=== PATIENT | female | born 2000 | race Caucasian/White ===

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

== ENCOUNTER 2023-03-02 21:53 | Emergency (ER) | payer OTHER, SELFPAY ==
--- NOTE | ~2023-03-02 | XR_ITS ---
EXAMINATION: LUMBAR SPINE, SACRUM AND COCCYX CLINICAL INFORMATION: Fall with acute pain COMPARISON: None available. TECHNIQUE: 3 views lumbosacral spine, 3 views sacrum and coccyx FINDINGS: Lumbar spine appears unremarkable. No evidence of fracture or bony destructive lesion . The sacrum appears intact without evidence of an acute fracture or destructive lesion. XR/XR lumbar spine 2-3V IMPRESSION: No evidence of an acute injury.
--- NOTE | ~2023-03-02 | XR_ITS ---
EXAMINATION: LUMBAR SPINE, SACRUM AND COCCYX CLINICAL INFORMATION: Fall with acute pain COMPARISON: None available. TECHNIQUE: 3 views lumbosacral spine, 3 views sacrum and coccyx FINDINGS: Lumbar spine appears unremarkable. No evidence of fracture or bony destructive lesion . The sacrum appears intact without evidence of an acute fracture or destructive lesion. XR/XR sacrum coccyx min 2V IMPRESSION: No evidence of an acute injury.
[2023-03-02 22:00] VITALS: BP 120/69; PULSE 93; RESP 18; TEMP 36.8; O2SAT 97; BMI 27.2
--- NOTE | 2023-03-03 02:48 | ED_ITS ---
HPI - Back Pain/Injury General Chief Complaint: Back Pain/Injury Stated Complaint: tailbone pain/lower back Time Seen by Provider: 03/03/23 02:48 Source: patient Mode of arrival: ambulatory Limitations: no limitations History of Present Illness HPI Narrative: Patient apparently fell 1 week ago on the steps about 5-7 steps slided down on the stairs since then complaining of pain the coccyx and left gluteal area, no other injury Related Data Previous Rx's Medication Instructions Recorded cyclobenzaprine 10 mg tablet 10 mg PO TID PRN muscle spasm #14 04/07/21 tabs cyclobenzaprine 10 mg tablet 10 mg PO TID PRN muscle spasm #14 04/07/21 tabs ibuprofen 600 mg tablet 600 mg PO Q6H PRN pain #30 tabs 04/07/21 ibuprofen 600 mg tablet 600 mg PO Q6H PRN pain #30 tabs 04/07/21 hydrocodone 5 mg-acetaminophen 325 1 tab PO Q4-6H PRN pain #5 tabs 08/07/21 mg tablet ibuprofen 600 mg tablet 600 mg PO Q6H PRN fever or pain 03/03/23 #30 tabs Allergies Allergy/AdvReac Type Severity Reaction Status Date / Time No Known Allergies Allergy Verified 03/02/23 22:04 Review of Systems 2 Review of Systems: Yes all other systems are reviewed and are negative PMFSH Past Medical History Onset Date is defined in the Problem List Problems that require an onset date and time if occurred within 24 hrs of arrival to the ED Aortic Dissection and Rupture; Neurologic impairment; Cardiopulmonary Arrest; Endotracheal Intubation; Insertion or Replacement of Mechanical Circulatory Assist Device Medical History No known health problems Social History Social History Alcohol intake: current Alcohol intake frequency: holidays/special occasions only Patient Tobacco Use Status: Never used Tobacco Substance Use Type: Marijuana Advance Directives: No Advance Directives Information Provided: No Current occupational status: employed 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 Mild tenderness in the right gluteal area no midline tenderness no ecchymosis or swelling normal gait Medications Administered Discontinued Medications Generic Name Dose Route Start Last Admin Trade Name Freq PRN Reason Stop Dose Admin Ibuprofen 600 mg 03/03/23 03:16 03/03/23 03:30 Ibuprofen 600 Mg Tablet PO 03/03/23 03:17 Not Given ONCE ONE Medical Decision Making Medical Decision Making MDM Narrative: Patient with contusion of the right gluteal area x-ray negative for lumbar/ sacral/coccygeal fracture discharge patient home on supportive Independent Interpretation I performed an independent interpretation of an: Plain X-Ray Radiology Impression Discussion of test interpretation with radiology: I have reviewed the radiologist's reading. Discharge Plan Discharge Clinical Impression: Contusion of sacral region Patient Disposition: Home, Self-Care Instructions: Contusion in Adults (ED) Additional Instructions: Take ibuprofen for pain Apply ice Your x-ray negative for fracture Prescriptions: New ibuprofen 600 mg tablet 600 mg PO Q6H PRN (Reason: fever or pain) Qty: 30 0RF No Action cyclobenzaprine 10 mg tablet 10 mg PO TID PRN (Reason: muscle spasm) Qty: 14 0RF ibuprofen 600 mg tablet 600 mg PO Q6H PRN (Reason: pain) Qty: 30 0RF cyclobenzaprine 10 mg tablet 10 mg PO TID PRN (Reason: muscle spasm) Qty: 14 0RF ibuprofen 600 mg tablet 600 mg PO Q6H PRN (Reason: pain) Qty: 30 0RF hydrocodone-acetaminophen 5-325 mg tablet 1 tab PO Q4-6H PRN (Reason: pain) Qty: 5 0RF Rx Instructions: Partial Fill upon patient request. Stand Alone Forms: Work/School Release Interventions: ED Discharge Assessment Last Done: 03/03/23 04:43 Discharge Date/Time: 03/03/23 03:32
--- NOTE | 2023-03-03 03:05 | PC.NURSE ---
Assumed care of pt. Report received from YANI Duarte. Per MD Randolph, plan for D/C, pending orders.
== END 2023-03-03 03:32 | disposition home or self-care (01) ==
PROVIDERS: Emergency Provider Internal Medicine
DX: S30.0XXA Contusion of lower back and pelvis, initial encounter (principal); W10.8XXA Fall (on) (from) other stairs and steps, initial encounter; Y93.89 Activity, other specified; Y92.008 Other place in unspecified non-institutional (private) residence as the place of occurrence of the external cause; Y99.9 Unspecified external cause status
CPT/HCPCS: 72100; 72220; 99283

== ENCOUNTER 2023-09-25 19:18 | Emergency (ER) | payer OTHER, SELFPAY ==
[2023-09-25 19:29] VITALS: BP 92/61; PULSE 82; RESP 16; TEMP 36.8; O2SAT 99; BMI 27.1
--- NOTE | 2023-09-25 19:34 | ED.GENADULT ---
HPI - General Adult General Chief complaint: General Medical Stated complaint: headache right ear pain Time Seen by Provider: 09/25/23 22:55 History of Present Illness ED Provider: Manuel KLEIN narrative: The patient is a 23-year-old female who says that for the last month she has had discomfort in her right ear. She says that she often feels that she has to ?pop? the right ear for relief. She has also had headaches over the last several days. She has had no fever, sweats, chills. No sore throat. No cough or sputum. No ear discharge. No trauma. Related Data Previous Rx's ?Medication ?Instructions ?Recorded cyclobenzaprine 10 mg tablet 10 mg PO TID PRN muscle spasm #14 04/07/21 tabs cyclobenzaprine 10 mg tablet 10 mg PO TID PRN muscle spasm #14 04/07/21 tabs ibuprofen 600 mg tablet 600 mg PO Q6H PRN pain #30 tabs 04/07/21 ibuprofen 600 mg tablet 600 mg PO Q6H PRN pain #30 tabs 04/07/21 hydrocodone 5 mg-acetaminophen 325 1 tab PO Q4-6H PRN pain #5 tabs 08/07/21 mg tablet ibuprofen 600 mg tablet 600 mg PO Q6H PRN fever or pain 03/03/23 #30 tabs ibuprofen 600 mg tablet 600 mg PO Q6H PRN pain #14 tabs 09/25/23 Allergies Allergy/AdvReac Type Severity Reaction Status Date / Time No Known Allergies Allergy Verified 09/25/23 19:30 [facility] Past Medical History Medical History No known health problems Social History Social History Alcohol intake: current Alcohol intake frequency: holidays/special occasions only Patient Tobacco Use Status: Never used Tobacco Substance Use Type: Marijuana Advance Directives: No Advance Directives Information Provided: No Do you have a plan to hurt others: No Plan Current occupational status: employed 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 She looks entirely well. She does not appear ill or uncomfortable in any way. HENMT Other: The appearance of the face is unremarkable. The face is symmetrical and appears normal. Ear exams are normal bilaterally. External ears are normal, ear canals are normal and clear, tympanic membranes are normal bilaterally. There is no significant TMJ tenderness. No obvious dental source of pain. No trismus. Eyes Other: Pupils are round and equal, conjunctivae are clear, extraocular movements intact. Neck Other: No cervical adenopathy. The neck is supple. Resp Effort & Inspection: normal respiratory effort Auscultation: clear to auscultation bilaterally Cardio Rate: regular rate Rhythm: regular rhythm Heart sounds: S1 normal heart sound present and S2 normal heart sound present Skin Other: Skin is dry and unremarkable Neuro Other: The patient is awake and alert with a normal mental status. Cranial nerves 2-12 are grossly intact. She moves all 4 extremities normally and seems grossly neurologically intact. Her demeanor is nontoxic. Extrem Other: No peripheral edema Course Course Course Narrative: RME performed by Paula Sullivan PA-C. Patient is a 23 year old assigned female at presenting to the emergency department with right ear pain and a headache. Patient has had right ear pain for 1 month and a headache for the last 3 days. Detailed physical exam and review of systems are deferred to the speech and language clinician. Swabs ordered. Patient placed back in the waiting room pending room availability and results. Medical Decision Making Medical Decision Making [facility] Narrative: The patient is a 23-year-old female who presents for evaluation of right ear symptoms that have bothered her for a month as well as intermittent headaches. She looks entirely well. She has no abnormal findings on physical exam. Specifically her ears look entirely unremarkable and without infection. The patient's description of her symptoms is somewhat suggestive of possible Eustachian tube dysfunction. I do not have a better alternative diagnosis. I do not feel there is evidence of TMJ syndrome. Patient seems appropriate for discharge. She had had a regular doctor at [facility] but she is under the impression that she is now too old to be seen at [facility]. She has not yet gotten a regular primary care doctor since leaving the pediatric practice. I explained that perhaps she can still be seen at [facility] while she is 23. She should call the office to see if she can be seen again for a 2nd opinion. I have also given her the name and number of Dr. Daigle of ENT for a possible ENT opinion. Lab Data Labs: Lab Results 09/25/23 Range/Units 19:49 Influenza Type A (PCR) NEGATIVE (Negative) Influenza Type B (PCR) NEGATIVE (Negative) RSV RNA Qual (PCR) NEGATIVE (Negative) SARS-CoV-2 RNA (RT-PCR) NEGATIVE (Negative) S. pyogenes GrpA KEVIN Negative (Negative) Discharge Plan Discharge Clinical Impression: Discomfort of right ear, Frequent headaches, Eustachian tube dysfunction Patient Disposition: Home, Self-Care Additional Instructions: The symptoms you were describing in your right ear I think are most likely consistent with a syndrome called Eustachian tube dysfunction. Eustachian tube dysfunction can be very bothersome but it is not a dangerous condition and it usually gets better on its own after several weeks. You may use ibuprofen and acetaminophen as needed for discomfort. Please work on getting a new primary care doctor. In the meantime I think it would be worth contacting [facility] to see if they could still see you for another year or so. The contact information for Dr. Daigle, an ear nose and throat doctor, has been provided. You may contact his office to see if he can see you for an additional opinion. Return to the emergency room if significantly worse. Prescriptions: New ibuprofen 600 mg tablet 600 mg PO Q6H PRN (Reason: pain) Qty: 14 0RF No Action cyclobenzaprine 10 mg tablet 10 mg PO TID PRN (Reason: muscle spasm) Qty: 14 0RF ibuprofen 600 mg tablet 600 mg PO Q6H PRN (Reason: pain) Qty: 30 0RF cyclobenzaprine 10 mg tablet 10 mg PO TID PRN (Reason: muscle spasm) Qty: 14 0RF ibuprofen 600 mg tablet 600 mg PO Q6H PRN (Reason: pain) Qty: 30 0RF hydrocodone-acetaminophen 5-325 mg tablet 1 tab PO Q4-6H PRN (Reason: pain) Qty: 5 0RF Rx Instructions: Partial Fill upon patient request. ibuprofen 600 mg tablet 600 mg PO Q6H PRN (Reason: fever or pain) Qty: 30 0RF Referrals: [facility] [Provider Group] (Right ear discomfort, headaches) Alex Daigle [Physician] - (Eustachian tube dysfunction) Interventions: ED Discharge Assessment Last Done: 09/25/23 23:30 Discharge Date/Time: 09/25/23 23:35 Print Language: Faroese
[2023-09-25 20:05] LABS: IDNOW Serial# 08D9AD1C; Strep A Nucleic Acid Negative (Negative)
[2023-09-25 20:34] LABS: Influenza A PCR NEGATIVE (Negative); Influenza B PCR NEGATIVE (Negative); Resp Syncy Virus RNA Qual PCR NEGATIVE (Negative); SARS COV2 PCR INHOUSE NEGATIVE (Negative)
[2023-09-25 23:30] VITALS: BP 104/58; PULSE 75; RESP 16; TEMP 36.7; O2SAT 99
== END 2023-09-25 23:35 | disposition home or self-care (01) ==
PROVIDERS: Physician Assistant Medical; Emergency Provider Emergency Medicine
DX: H69.91 Unspecified Eustachian tube disorder, right ear (principal); H92.01 Otalgia, right ear; R51.9 Headache, unspecified; Z03.818 Encounter for observation for suspected exposure to other biological agents ruled out
CPT/HCPCS: 0241U; 87651; 99282; 99283

== ENCOUNTER 2023-10-01 09:15 | Emergency (ER) | payer OTHER, SELFPAY ==
[2023-10-01 09:26] VITALS: BP 100/63; PULSE 78; RESP 16; TEMP 36.6; O2SAT 97; BMI 25.7
--- NOTE | 2023-10-01 09:31 | ED.HA ---
HPI - Headache General Chief Complaint: Headache Stated Complaint: headache Time Seen by Provider: 10/01/23 09:29 Source: patient Mode of arrival: ambulatory Limitations: no limitations History of Present Illness HPI Narrative: Patient is a 23-year-old female who presents emergency department for evaluation of a headache. She reports over the past week she has been experiencing an intermittent headache with varying intensity at times. She reports it is often on the right side but she also feels it to the left side of her head in the back of her head. Currently she is experiencing a 4/10 right-sided headache, pain feels more localized behind her right eye. She denies associated vision changes. She denies having difficulty seeing or feeling as though she is straining to try and see. She reports a single episode of dizziness yesterday occurring for 3 seconds and when asked to describe it she reports that she felt as though she would vomit. She occasionally gets nausea with her headaches. Over the past month she has been experiencing discomfort to her right ear and a popping sensation on occasion. She reports that she has not sought evaluation for these headaches. Over the past week she has needed to take ibuprofen 600 mg on 3 occasions. The headache typically resolves with rest. She denies URI symptoms fevers chills neck pain or neck stiffness. She denies any injury or trauma. Denies any chest pain or shortness of breath. Related Data Previous Rx's ?Medication ?Instructions ?Recorded cyclobenzaprine 10 mg tablet 10 mg PO TID PRN muscle spasm #14 04/07/21 tabs cyclobenzaprine 10 mg tablet 10 mg PO TID PRN muscle spasm #14 04/07/21 tabs ibuprofen 600 mg tablet 600 mg PO Q6H PRN pain #30 tabs 04/07/21 ibuprofen 600 mg tablet 600 mg PO Q6H PRN pain #30 tabs 04/07/21 hydrocodone 5 mg-acetaminophen 325 1 tab PO Q4-6H PRN pain #5 tabs 08/07/21 mg tablet ibuprofen 600 mg tablet 600 mg PO Q6H PRN fever or pain 03/03/23 #30 tabs ibuprofen 600 mg tablet 600 mg PO Q6H PRN pain #14 tabs 09/25/23 Allergies Allergy/AdvReac Type Severity Reaction Status Date / Time No Known Allergies Allergy Verified 10/01/23 09:27 Review of Systems Review of Systems: Yes all other systems are reviewed and are negative [facility] Past Medical History Attestation statement: The following information was validated with the patient. 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 No acute distress.?Normal affect. Head: Normocephalic, atraumatic Eyes: Pupils equal, round and reactive to light. EOMI. No nystagmus. No tenderness to palpation over the temporal region. ENT: External auditory canal normal tympanic membrane pearly roque and intact bilaterally. Oropharynx normal. Neck: Normal inspection.? Neck supple. No nuchal rigidity CVS: Heart sounds normal. Normal heart rate and rhythm.? Pulses normal.?? Respiratory: No respiratory distress.? Lung sounds clear to auscultation bilaterally?? Abdomen: Soft and non-tender. Normoactive bowel sounds. ?? Skin: Skin warm and dry.? Normal skin color.? ?? Extremities: No lower extremity edema.? Neuro: Moves all extremities spontaneously. Sensation intact bilaterally. CN II-XII intact. No focal neuro deficits. Ambulatory with steady gait. Medications Administered Discontinued Medications Generic Name Dose Route Start Last Admin Trade Name Freq PRN Reason Stop Dose Admin Ibuprofen 600 mg 10/01/23 09:50 10/01/23 10:48 Ibuprofen 600 Mg Tablet PO 10/01/23 09:51 600 mg ONCE ONE Administration Medical Decision Making Medical Decision Making MDM Narrative: Patient is a 23-year-old female who presents to the emergency department for evaluation of intermittent headaches as per HPI. Overall she appears well, nontoxic, afebrile. She is in no distress. She has no red flag symptoms, no focal neurological deficits on evaluation. Her history sounds very typical of a classic migraine headache, it is resolved when going into a quiet room and resting or with seldom use of ibuprofen. I have a low suspicion for acute intracranial pathology as etiology. Given she has not had recent evaluation by a primary care doctor and is in the works of establishing care with a new provider, will obtain basic labs to exclude potential causes such as anemia, electrolyte derangement, abnormal thyroid function, . Patient agreeable to receiving ibuprofen for headache at this time. Differential diagnosis with presentation includes SDH, SAH, ICH, MUCK HAULER mass, meningitis, encephalitis, CVA, GCA, migraine, headache. History without concerning exposures, not exacerbated or worsened by exertion, no red flag symptoms, vision changes, under the age of 50, no new no compromising conditions, no focal neurological abnormalities. Of note she was evaluated in this emergency department on 09/25/2023 for evaluation of her right ear discomfort, fullness and popping sensation over the past month. There was concern for possible eustachian tube dysfunction for which she was referred to ENT, she call them yet to make an appointment. Headaches may be a symptom of ETD as well which I did discuss with patient. Differential Diagnosis Differential Diagnoses: The differential diagnosis associated with the presentation includes (SDH, SAH, ICH, MUCK HAULER mass, meningitis, encephalitis, CVA, GCA, migraine, headache) Admission/Observation Consideration of admission/observation: Escalation of care including admission/observation considered Lab Data MDM Lab Attestation statement: I reviewed the patient's lab results. CBC is without leukocytosis, anemia, or thrombocytopenia. No electrolyte derangement. No HELEN. HCG is negative. TSH within normal range. Viral panel negative. 10/01/23 10:02 10/01/23 10:02 Labs: Lab Results 10/01/23 Range/Units 10:02 WBC 5.6 (4.8-10.8) X10*3/uL RBC 4.17 L (4.20-5.50) X10*6/uL Hgb 12.9 (12.0-16.0) g/dl Hct 38.9 (37.0-47.0) % MCV 93.3 (80.0-98.0) fL MCH 30.9 (27.0-33.0) pg MCHC 33.2 (31.0-35.0) g/dl RDW 11.9 (11.0-16.0) % Plt Count 253 (160-400) X10*3/uL MPV 9.9 (9.4-12.3) fL Immature Gran % (Auto) 0.4 (0.0-0.4) % Neut % (Auto) 63.5 (45-73) % Lymph % (Auto) 27.3 (20-40) % Milam % (Auto) 7.5 (2-11) % Eos % (Auto) 0.4 (0-4) % Baso % (Auto) 0.9 (0-2) % Lymph # (Auto) 1.5 (1.2-4.9) X10*3/uL Milam # (Auto) 0.4 (0.1-1.2) X10*3/uL Eos # (Auto) 0.0 (0.0-0.4) X10*3/uL Baso # (Auto) 0.1 (0.0-0.2) X10*3/uL Abs Immat Gran (auto) 0.02 (0.00-0.03) X10*3/uL Absolute Neuts (auto) 3.5 (2.0-8.3) x10*3/uL Absolute Nucleated RBC 0.000 (0.0-0.012) X10*3/uL Nucleated RBC % (auto) 0.0 (0.0-0.2) /100WBC Sodium 140 (135-145) mmol/L Potassium 4.5 (3.3-5.1) mmol/L Chloride 107 (96-108) mmol/L Carbon Dioxide 26 (22-29) mmol/L Anion Gap 12 (12-20) BUN 10 (9-16) mg/dL Creatinine 0.67 (0.5-1.4) mg/dL Estim Creat Clear Calc 98.2 Estimated GFR > 60 Random Glucose 89 (60-115) mg/dL Calcium 9.3 (8.4-10.2) mg/dL TSH 0.65 (0.32-4.0) uIU/mL Urine Test NEGATIVE (NEGATIVE) Influenza Type A (PCR) NEGATIVE (Negative) Influenza Type B (PCR) NEGATIVE (Negative) RSV RNA Qual (PCR) NEGATIVE (Negative) SARS-CoV-2 RNA (RT-PCR) NEGATIVE (Negative) Independent Historian Clinical information obtained from an independent historian. History obtained from or confirmed by: Spouse External Record Review External record reviewed: Outpatient record Discharge Plan Discharge Clinical Impression: Headache Patient Disposition: Home, Self-Care Instructions: Migraine Headache (ED), Acute Headache (ED) Additional Instructions: As discussed, your symptoms of your headaches sound very consistent with a migraine style headache. Your blood work today was all very reassuring. You can take ibuprofen 200 mg, 3 tablets (600mg) every 6-8 hours as needed for pain, in addition to Tylenol 500 mg, 2 tablets (1,000mg) every 4-6 hours as needed for pain, but not to exceed 3 doses daily (3,000mg).? You were recently evaluated in the emergency department as well with concern for discomfort to your right ear and popping, you were thought to have possible eustachian tube dysfunction. It is still recommended that you follow-up with an ENT specialist, Dr. Daigle who is number you were given previously as eustachian tube dysfunction may also result in headaches. Keep a log of your headaches in written or typed form including What time they occur, How long they last for, Medicine or intervention such as rest and sleeping that help the headache to go away. It is also helpful to keep though of certain foods that you ate earlier that day before the headache onset. This can be evaluated with your primary care doctor to try and determine potential precipitating factors of your headache. Additionally as discussed, you may contact your digital service engineer office to determine whether they will still see you as a patient during this year as you are still 23 years old while you are working to find a new adult primary care doctor. Please contact your insurance company for assistance with local providers in network or consider calling local offices to determine whether they accept your insurance and are taking new patients. I have also attached contact information for some of the primary care offices associated with our hospital in addition to [facility] the you may attempt calling. Prescriptions: No Action cyclobenzaprine 10 mg tablet 10 mg PO TID PRN (Reason: muscle spasm) Qty: 14 0RF ibuprofen 600 mg tablet 600 mg PO Q6H PRN (Reason: pain) Qty: 30 0RF cyclobenzaprine 10 mg tablet 10 mg PO TID PRN (Reason: muscle spasm) Qty: 14 0RF ibuprofen 600 mg tablet 600 mg PO Q6H PRN (Reason: pain) Qty: 30 0RF hydrocodone-acetaminophen 5-325 mg tablet 1 tab PO Q4-6H PRN (Reason: pain) Qty: 5 0RF Rx Instructions: Partial Fill upon patient request. ibuprofen 600 mg tablet 600 mg PO Q6H PRN (Reason: fever or pain) Qty: 30 0RF ibuprofen 600 mg tablet 600 mg PO Q6H PRN (Reason: pain) Qty: 14 0RF Referrals: [facility] [Provider Group] [facility] [place]] [facility] [[place] Group] Alex Daigle [Physician] - Print Language: Lithuanian
[2023-10-01 10:09] LABS: MANUAL DIFF FLAG NO
[2023-10-01 10:12] LABS: Basophils Absolute Auto 0.1 X10*3/uL (0.0-0.2); Basophils Percent Auto 0.9 % (0-2); Eosinophils Percent Auto 0.4 % (0-4); Hematocrit 38.9 % (37.0-47.0); Hemoglobin 12.9 g/dl (12.0-16.0); Imm Gran Abs Auto 0.02 X10*3/uL (0.00-0.03); Imm Gran Pct Auto 0.4 % (0.0-0.4); Lymphocytes Absolute Auto 1.5 X10*3/uL (1.2-4.9); Lymphocytes Percent Auto 27.3 % (20-40); Mean Corpuscular HGB Conc 33.2 g/dl (31.0-35.0); Mean Corpuscular Hemoglobin 30.9 pg (27.0-33.0); Mean Corpuscular Volume 93.3 fL (80.0-98.0); Mean Platelet Volume 9.9 fL (9.4-12.3); Monocytes Absolute Auto 0.4 X10*3/uL (0.1-1.2); Monocytes Percent Auto 7.5 % (2-11); Neutrophils Absolute Auto 3.5 x10*3/uL (2.0-8.3); Neutrophils Percent Auto 63.5 % (45-73); Platelet Count 253 X10*3/uL (160-400); Red Blood Count 4.17 X10*6/uL (4.20-5.50); Red Cell Distribution Width 11.9 % (11.0-16.0); White Blood Count 5.6 X10*3/uL (4.8-10.8)
[2023-10-01 10:30] LABS: Anion Gap 12 (12-20); Blood Urea Nitrogen 10 mg/dL (9-16); Calcium 9.3 mg/dL (8.4-10.2); Carbon Dioxide 26 mmol/L (22-29); Chloride 107 mmol/L (96-108); Creatinine Clr Calc Pharmacy 98.2; Estimated Glomerular Filt Rate > 60; Glucose Random 89 mg/dL (60-115); Potassium 4.5 mmol/L (3.3-5.1); Sodium 140 mmol/L (135-145)
[2023-10-01 10:32] LABS: UPreg QC Valid YES; Urine Pregnancy NEGATIVE (NEGATIVE)
[2023-10-01] MEDS: Ibuprofen 600 MG TABLET PO (10:48)
[2023-10-01 10:53] LABS: Influenza A PCR NEGATIVE (Negative); Influenza B PCR NEGATIVE (Negative); Resp Syncy Virus RNA Qual PCR NEGATIVE (Negative); SARS COV2 PCR INHOUSE NEGATIVE (Negative); TSH reflex Free T4 0.65 uIU/mL (0.32-4.0)
[2023-10-01 11:29] VITALS: BP 100/63; PULSE 78; RESP 16; TEMP 36.6; O2SAT 97
== END 2023-10-01 11:30 | disposition home or self-care (01) ==
PROVIDERS: Nurse Practitioner Family; Emergency Provider Student in an Organized Health Care Education/Training Program
DX: R51.9 Headache, unspecified (principal); Z03.818 Encounter for observation for suspected exposure to other biological agents ruled out
CPT/HCPCS: 0241U; 36415; 80048; 81025; 84443; 85025; 99283

== ENCOUNTER 2024-08-07 13:48 | Outpatient (AMB) | payer OTHER, SELFPAY ==
[2024-08-07 13:50] VITALS: BP 102/76; PULSE 97; O2SAT 98; BMI 28.6
--- NOTE | 2024-08-07 13:50 | A.OFFPC_ITS ---
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: No Accompanied by: Self / Same As Patient Allergies No Known Allergies Allergy (Verified 08/07/24 13:51) Tobacco use date assessed: 08/07/24 Dental Screening Dental Screen Date: 08/07/24 Did you have a dental visit in the last 12 months?: Yes Did you have a dental problem in the last 6 months where you did not have access to dental care?: No Was dental information given to patient?: Patient has dentist HPI establish care HPI Details LMP June irregular 5 days [employer] Apri 2024 [facility] Medical History No known health problems Family History (Updated 08/07/24 @ 13:55 by MARIA DEL CARMEN Choe) Other Breast cancer Diabetes Social History Housing: Apartment Alcohol intake: current Alcohol intake frequency: holidays/special occasions only Patient Tobacco Use Status: Never used Tobacco e-Cigarette/Vaping Use: Never Used Second Hand Smoke Exposure: No Substance Use Type: Marijuana service: No Current occupational status: employed 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 1. Little interest or pleasure in doing things: several days 2. Feeling down, depressed, or hopeless: several days 3. Trouble falling or staying asleep, or sleeping too much: more than half the days 4. Feeling tired or having little energy: more than half the days 5. Poor appetite or overeating: not at all 6. Feeling bad about yourself - or that you are a failure or have let yourself or your family down: several days 7. Trouble concentrating on things, such as reading the newspaper or watching television: more than half the days 8. Moving or speaking so slowly that other people could have noticed. Or the opposite - being so fidgety or restless that you have been moving around a lot more than usual: not at all 9. Thoughts that you would be better off or of hurting yourself in some way: not at all Total score: 9 Source: Developed by Drs. Olaf Toro, Cecille Zamora, Michoacano Amaya and colleagues, with an educational geraldo from [employer]. Thrive Questionnaire Date Thrive assessed: 08/07/24 I am a: Patient What is your living situation today?: I have a steady place to live Within the past 12 months, did the food you bought not last and you didn't have the money to get more?: I choose not to answer this question Within the past 12 months, did you worry whether your food would run out before you got money to buy more?: I choose not to answer this question Do you have trouble paying for medicines?: I choose not to answer this question Do you have trouble getting transportation to medical appointments?: No Do you have trouble paying your heating and electricity bill?: I choose not to answer this question Do you have trouble taking care of your child, family member or friend?: I choose not to answer this question Do you have trouble with day-to-day activities such as bathing, preparing meals, shopping, managing finances, etc.?: No Are you currently unemployed and looking for a job?: No Are you interested in more education?: I choose not to answer this question Please select the resources that you would like help with: None Currently or been in a relationship where the following occur: No concerns reported THRIVE Score: 0 AUDIT C Alcohol Use Questionnaire (AUDIT-C) 1. How often do you have a drink containing alcohol?: Monthly or less 2. How many drinks containing alcohol do you have on a typical day when you are drinking?: 1 or 2 3. How often do you have six or more drinks on one occasion?: Never Total Score: 1 DIANE-7 AMB Questionnaire DIANE-7 Date DIANE - 7 assessed: 08/07/24 Feeling nervous, anxious, or on edge: 1 = Several days Not being able to stop or control worryin = Not at all Worrying too much about different things: 1 = Several days Trouble relaxin = Several days Being so restless that it is hard to sit still: 0 = Not at all Becoming easily annoyed or irritable: 1 = Several days Feeling afraid as if something awful might happen: 1 = Several days Total DIANE-7 score (0-4 normal; 5-9 mild; 10-14 moderate; 15-21 severe): 5 Source: Developed by Drs. Olaf Toro, Cecille Zamora, Michoacano Amaya and colleagues, with an educational geraldo from [employer]. Physical exam (Primary Care) Vital Signs: Last Vital Signs Pulse 97 08/07/24 13:50 BP 102/76 08/07/24 13:50 Pulse Ox 98 08/07/24 13:50 Oxygen Delivery Method Room Air 08/07/24 13:50 BMI result Body Mass Index 28.6 Tobacco/Smoking Status: Tobacco use Status Tobacco use date assessed 08/07/24 08/07/24 13:56 Patient Tobacco Use Status Never used Tobacco 08/07/24 13:56 e-Cigarette/Vaping Use Never Used 08/07/24 13:56 PHQ-9: PHQ-9 Score PHQ-9: Total score 9 08/07/24 14:25 Thrive Assessment: Date of Thrive Assessment Date Thrive assessed 08/07/24 08/07/24 13:56 Currently or been in a relationship where the following occur: No concerns reported Const General: alert; No acute distress Eyes Conjunctivae: conjunctivae normal Resp Auscultation: clear to auscultation bilaterally Cardio Rate: regular rate Rhythm: regular rhythm GI Inspection: Yes normal to inspection Extrem General: Yes normal to inspection and No edema Coding Level of Care Code Est Pt Level 4 (76675) Diagnoses Overweight (BMI 25.0-29.9) E66.3 De Quervain's tenosynovitis, left M65.4 Hirsutism L68.0 Bilateral foot pain M79.671; M79.672 Assessment & Plan Assessment & Plan (1) Overweight (BMI 25.0-29.9): Code(s): E66.3 - Overweight Category: Medical (2) De Quervain's tenosynovitis, left: Comment: s/p release 07/2023 Code(s): M65.4 - Radial styloid tenosynovitis [de Quervain] Category: Medical (3) Hirsutism: Code(s): L68.0 - Hirsutism Category: Medical (4) Bilateral foot pain: Code(s): M79.671 - Pain in right foot; M79.672 - Pain in left foot Category: Medical Plan History of Present Illness The patient is a 24-year-old female presenting for a wellness visit and evaluation of headaches and hirsutism. The patient has a history of headaches, which led to an emergency room visit last year where they were treated conservatively. She notes a decrease in the frequency of headaches recently. In 2021, the patient was diagnosed with de Quervain's tenosynovitis on the left side and underwent surgical release in July 2021. Post-surgery, she experienced numbness which has recently resolved. A pelvic ultrasound in 2021 revealed a right ovarian cyst, which the patient associates with occasional pain, possibly related to her menstrual cycle. The patient reports hirsutism, particularly facial hair growth, which has been a concern for the past year. She has requested hormone level testing to investigate this issue further. The patient's blood work in 2023 showed normal results, including blood count, electrolytes, renal, liver, and thyroid function. A lumbar spine X-ray was normal, and she has no known allergies or current medications. Health Maintenance - Hormone level testing ordered to investigate hirsutism - Discussion on the importance of regular exercise and hydration - Vaccination status reviewed, including tetanus and HPV vaccines Social History - Exercise: Patient attempts to exercise weekly but sometimes misses sessions. - Family history: Reports family history of joint problems, including bunions and knee surgeries. Review of Systems - Neurological: Reports headaches, denies recent episodes. - Musculoskeletal: Denies joint pain, reports family history of joint issues. - Endocrine: Reports hirsutism, denies other endocrine symptoms. - Gastrointestinal: Reports bloating, denies nausea, vomiting, or constipation. - Genitourinary: Reports irregular menstrual cycles, denies urinary issues. Physical Exam General: Cooperative, healthy appearing, comfortable, no acute distress and well developed Orientation: Patient oriented x3 Limitations: No limitations Head: Normal to inspection Ears: Hearing grossly normal bilaterally Nose: Normal external nose present Face and sinus: Normal facial exam Eyes: Appearance normal, both eyes and all related structures Neck: Normal visual inspection and Yes full ROM Respiratory: Normal respiratory effort and able to speak in complete sentences. Clear to auscultation bilaterally Cardiovascular: Regular rate and rhythm. Normal S1 and S2 GI: Normal to inspection. Soft to palpation and nontender Skin: No rashes or lesions noted Neuro: Patient oriented x3 Extremities: Normal to inspection Results - Labs: Normal blood count, electrolytes, renal, liver, and thyroid function (2023). - Imaging: Normal lumbar spine X-ray. - Imaging: Pelvic ultrasound in 2021 showed right ovarian cyst. Plan The patient will undergo hormone level testing to further investigate the cause of hirsutism, particularly the facial hair growth that has been concerning her f or the past year. Regular exercise and adequate hydration were emphasized as part of her health maintenance plan. The patient's vaccination status was reviewed, with a focus on ensuring up-to-date tetanus and HPV vaccinations. Given the family history of joint issues, the option of obtaining X-rays was discussed to assess any underlying bone conditions, particularly in light of her reported foot pain. Patient was informed and verbally consented to the use of an ambient scribe for clinic note documentation during this visit. Discussion Notes During the visit, I discussed with the patient the plan to conduct hormone level testing to address her concerns about hirsutism. We reviewed her vaccination history, emphasizing the importance of maintaining up-to-date tetanus and HPV vaccinations. I advised her on the benefits of regular exercise and proper hydration for overall health maintenance. Given her family history of joint issues, we considered the possibility of X-rays to evaluate her foot pain. Patient Instructions - Schedule and complete hormone level testing as discussed. - Maintain regular exercise and ensure adequate hydration daily. - Review vaccination records and update tetanus and HPV vaccines if needed. - Consider X-rays if foot pain persists or worsens. Orders: Orders Cortisol Random Today L68.0 - Hirsutism XR Foot Beni 2V Today M79.671 - Pain in right foot, M79.672 - Pain in left foot Testosterone, Total Today L68.0 - Hirsutism 17 Hydroxyprogesterone Today L68.0 - Hirsutism HCG Quantitative Today L68.0 - Hirsutism Prolactin Today L68.0 - Hirsutism Thyroid Stimulating Hormone Today L68.0 - Hirsutism Free T4 (Free Thyroxine) Today L68.0 - Hirsutism
--- OUTSIDE RECORDS SUMMARY | 2024-08-07 15:27 | XMS_ITS | Encounter Summary ---
Author Organization [facility] Address [address] [place] [id number] Phone Care Team Providers Care Advanced Research Programs Director Name Role Phone Kristel Krishna MD Primary Care Provider [phone] Encounter Details Date Type Department Care Team (Late st Contact Info) Description 11/05/2011 Documentation [facility] Family Medicine [address] [place], [place] [id number] Family Medicine, Physician [address], [place] [id number] Social History Tobacco Use Types Packs/Day Years Used Date Smoking Tobacco: Never Assessed Comments Unknown Sex and Gender Information Value Date Recorded Sex Assigned at Not on file Legal Sex Female 3:35 PM EDT Gender Identity Female 01/12/2023 7:50 AM EST Sexual Orientation Straight 12/19/2018 3: 14 PM EDT documented as of this encounter Plan of Treatment Not on file documented as of this encounter Visit Diagnoses Not on filedocumented in this encounter Care Teams Advanced Research Programs Director Relationship Specialty Start Date End Date Kristel Krishna MD [address] [place] [id number] PCP - General Pediatrics 03/10/19 07/21/23 documented as of this encounter
== END 2024-08-07 14:39 | disposition home or self-care (01) ==
LOC: HO.HMCH 13:49
PROVIDERS: Visit Provider Internal Medicine
DX: E66.3 Overweight (principal); M65.4 Radial styloid tenosynovitis [de Quervain]; L68.0 Hirsutism; M79.671 Pain in right foot; M79.672 Pain in left foot

== ENCOUNTER → 2024-08-07 13:48 | Outpatient (BNVA) | payer OTHER, SELFPAY | PROVIDERS: Visit Provider Internal Medicine | DX: E66.3 Overweight (principal); M65.4 Radial styloid tenosynovitis [de Quervain]; J68.0 Bronchitis and pneumonitis due to chemicals, gases, fumes and vapors; M79.671 Pain in right foot; M79.672 Pain in left foot; R51.9 Headache, unspecified; L68.0 Hirsutism; Z68.28 Body mass index [BMI] 28.0-28.9, adult | CPT/HCPCS: 99212 ==

== ENCOUNTER 2024-11-27 15:47 | Outpatient (AMB) | payer OTHER, SELFPAY ==
[2024-11-27 15:49] VITALS: BP 98/60; PULSE 87; TEMP 36.1; O2SAT 98; BMI 27.6
--- NOTE | 2024-11-27 15:49 | MHC.PC.OV ---
Vital Signs 11/27/24 15:49 Height 4 ft 10 in Weight 132 lb BMI 27.6 BP 98/60 Blood Pressure Location Rt brachial Position Sitting Pulse 87 Pulse Source Pulse Oximeter Temp 97.0 F Temp Source Temporal Artery Scan Pulse Oximetry (%) 98 Oxygen Delivery Method Room Air Intake Visit Reasons: PE Allergies No Known Allergies Allergy (Verified 11/27/24 15:52) Medication List - Last Reconciled 11/27/24 by Erin Allen MD No Known Home Meds Tobacco use date assessed: 11/27/24 Dental Screening Dental Screen Date: 11/27/24 Did you have a dental visit in the last 12 months?: No Did you have a dental problem in the last 6 months where you did not have access to dental care?: No Was dental information given to patient?: Patient has dentist HPI PE HPI Details LMP9/18-22. PMP3rd week PFSH Medical History (Updated 11/27/24 @ 16:03 by Erin Allen MD) No known health problems Family History (Updated 11/27/24 @ 15:54 by Jacqueline López CMA) Maternal Aunt Breast cancer Maternal Grandfather Heart attack Other Diabetes Social History (Updated 11/27/24 @ 16:06 by Erin Allen MD) Housing: Apartment Alcohol intake: current Alcohol intake frequency: holidays/special occasions only Comment: once a year 2 mixed drinks Patient Tobacco Use Status: Never used Tobacco e-Cigarette/Vaping Use: Never Used Second Hand Smoke Exposure: No Substance Use Type: Marijuana service: No Current occupational status: employed 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 1. Little interest or pleasure in doing things: several days 2. Feeling down, depressed, or hopeless: several days 3. Trouble falling or staying asleep, or sleeping too much: more than half the days 4. Feeling tired or having little energy: more than half the days 5. Poor appetite or overeating: not at all 6. Feeling bad about yourself - or that you are a failure or have let yourself or your family down: several days 7. Trouble concentrating on things, such as reading the newspaper or watching television: more than half the days 8. Moving or speaking so slowly that other people could have noticed. Or the opposite - being so fidgety or restless that you have been moving around a lot more than usual: not at all 9. Thoughts that you would be better off or of hurting yourself in some way: not at all Total score: 9 Source: Developed by Drs. Olaf Toro, Cecille Zamora, Michoacano Amaya and colleagues, with an educational geraldo from [employer]. Thrive Questionnaire Date Thrive assessed: 07/31/24 I am a: Patient What is your living situation today?: I have a steady place to live Within the past 12 months, did the food you bought not last and you didn't have the money to get more?: I choose not to answer this question Within the past 12 months, did you worry whether your food would run out before you got money to buy more?: I choose not to answer this question Do you have trouble paying for medicines?: I choose not to answer this question Do you have trouble getting transportation to medical appointments?: No Do you have trouble paying your heating and electricity bill?: I choose not to answer this question Do you have trouble taking care of your child, family member or friend?: I choose not to answer this question Do you have trouble with day-to-day activities such as bathing, preparing meals, shopping, managing finances, etc.?: No Are you currently unemployed and looking for a job?: No Are you interested in more education?: I choose not to answer this question Please select the resources that you would like help with: None Currently or been in a relationship where the following occur: No concerns reported THRIVE Score: 0 AUDIT C Alcohol Use Questionnaire (AUDIT-C) 1. How often do you have a drink containing alcohol?: Monthly or less 2. How many drinks containing alcohol do you have on a typical day when you are drinking?: 1 or 2 3. How often do you have six or more drinks on one occasion?: Never Total Score: 1 DIANE-7 AMB Questionnaire DIANE-7 Date DIANE - 7 assessed: 08/07/24 Feeling nervous, anxious, or on edge: 1 = Several days Not being able to stop or control worryin = Not at all Worrying too much about different things: 1 = Several days Trouble relaxin = Several days Being so restless that it is hard to sit still: 0 = Not at all Becoming easily annoyed or irritable: 1 = Several days Feeling afraid as if something awful might happen: 1 = Several days Total DIANE-7 score (0-4 normal; 5-9 mild; 10-14 moderate; 15-21 severe): 5 Source: Developed by Drs. Olaf Toro, Cecille Zamora, Michoacano Amaya and colleagues, with an educational geraldo from [employer]. Review of Systems Const Denies poor appetite and Denies weakness Eyes Denies no additional complaints ENT Reports Normal hearing present, Denies dizziness, Denies nasal congestion, Denies tinnitus and Denies sore throat Card Denies chest pain, Denies syncope, Denies rapid heart rate and Denies dyspnea Resp Denies cough and Denies dyspnea GI Denies change in stool character, Reports constipation, Denies diarrhea, Denies nausea and Denies vomiting Denies urinary frequency, Denies difficulty voiding and Denies dysuria Neuro Reports Normal hearing present, Denies confusion, Denies dizziness, Denies syncope and Denies weakness Psych Denies confusion Physical exam (Primary Care) Vital Signs: Last Vital Signs Temp 97.0 F 11/27/24 15:49 Pulse 87 11/27/24 15:49 BP 98/60 11/27/24 15:49 Pulse Ox 98 11/27/24 15:49 Oxygen Delivery Method Room Air 11/27/24 15:49 BMI result Body Mass Index 27.6 Tobacco/Smoking Status: Tobacco use Status Tobacco use date assessed 11/27/24 11/27/24 15:55 Patient Tobacco Use Status Never used Tobacco 11/27/24 16:06 e-Cigarette/Vaping Use Never Used 11/27/24 16:06 PHQ-9: PHQ-9 Score PHQ-9: Total score 9 11/27/24 16:04 Thrive Assessment: Date of Thrive Assessment Date Thrive assessed 07/31/24 11/27/24 15:55 Currently or been in a relationship where the following occur: No concerns reported Const General: No confusion Orientation/consciousness: No confusion HENMT Head: Yes normocephalic Ears: external ears normal and TM's normal bilaterally Face and sinus: Yes normal facial exam Mouth: moist mucous membranes Throat: Yes tonsils normal Eyes Conjunctivae: conjunctivae normal Pupils: Equal, round and reactive pupils present and Pupil accommodation reflex normal Direct Ophthalmoscopy: normal light reflex Neck Neck: No lymphadenopathy Thyroid: Thyroid normal Chest Chest palpation & inspection: normal inspection of the chest Resp Effort & Inspection: normal respiratory effort and no audible wheezes Auscultation: clear to auscultation bilaterally, no crackles, no wheezes and lung sounds not diminished Cardio Rate: regular rate Rhythm: regular rhythm Peripheral pulses: radial pulses present and dorsalis pedis present GI Palpation (GI): no masses Auscultation: normal bowel sounds and normoactive bowel sounds Rectal Exam - Female: deferred Skin General skin exam: no rashes or lesions noted Rashes: no rashes Neuro General: No confusion Cranial nerves: Yes Equal, round and reactive pupils present and Yes Normal hearing present Cognition (Neuro): normal cognition Gait exam (Neuro): Normal gait present Motor exam (neuro): 5/5 motor strength present throughout Deep tendon reflexes (DTR's): Right brachioradialis reflex intensity grade: 2+, Left brachioradialis reflex intensity grade: 2+, Right patellar reflex intensity grade: 2+ and Left patellar reflex intensity grade: 2+ Extrem General: No edema Coding Level of Care Code Est Pt Prev Care 18-39y(19765) Diagnoses Annual physical exam Z00.00 Overweight (BMI 25.0-29.9) E66.3 Hirsutism L68.0 Assessment & Plan Assessment & Plan (1) Annual physical exam: Code(s): Z00.00 - Encounter for general adult medical examination without abnormal findings Category: Medical Plan: Patient is advised to eat healthy, keep well hydrated, keep active and have adequate sleep. (2) Overweight (BMI 25.0-29.9): Code(s): E66.3 - Overweight Category: Medical Plan: Diet and exercise (3) Hirsutism: Code(s): L68.0 - Hirsutism Category: Medical Plan History of Present Illness The patient is a 24-year-old female presenting with an annual physical examination. She has a history of being overweight, with a recent unintentional weight loss of 5 pounds since July, reducing her weight from 137 to 132 pounds. She denies any changes in her eating habits and reports no new medications or allergies. The patient has a history of hirsutism, which has been previously evaluated with hormonal workup and thyroid function tests, both of which were normal. She has been referred to dermatology for further evaluation of facial hair growth, which she reports as worsening. She has a history of vitreomacular adhesion, for which she has seen an supervisor electrolytic tinning, and no significant issues were noted during her last evaluation. The patient reports symptoms consistent with allergic rhinitis, including nasal drip and sneezing, which may be related to pet exposure. She has been advised to try loratadine for symptom relief. The patient also reports the presence of tonsillar stones, which occasionally cause bad breath. She has been advised to maintain adequate hydration to help manage this condition. Health Maintenance - Annual physical examination conducted - Referral to dermatology for evaluation of hirsutism - Advised to take loratadine for allergic rhinitis symptoms - Encouraged to maintain hydration for tonsillar stones management Social History - Alcohol use: Rare, approximately once a year, with minimal consumption - Tobacco use: Denies any use of cigarettes - Family history: Aunt with breast cancer, grandfather with heart attack, paternal grandmother with unspecified cancer - Pet exposure: Lives with dogs and cats, possible trigger for allergic rhinitis Review of Systems - General: Denies fever, nausea, vomiting - Cardiovascular: Denies chest pain, syncope, or palpitations - Respiratory: Denies dyspnea, cough, or wheezing - Gastrointestinal: Reports occasional diarrhea, denies constipation or blood in stools - Genitourinary: Denies dysuria, nocturia - Neurological: Denies dizziness, syncope - ENT: Reports nasal drip, denies hearing loss Physical Exam General: Cooperative, healthy appearing, comfortable, no acute distress and well developed Orientation: Patient oriented x3 Limitations: No limitations Head: Normal to inspection Ears: Hearing grossly normal bilaterally Nose: Nasal drip noted, possible allergies Face and sinus: Normal facial exam, but patient reports facial growth and worsening acne Eyes: Appearance normal, both eyes and all related structures Neck: Normal visual inspection and Yes full ROM Respiratory: Normal respiratory effort and able to speak in complete sentences. Clear to auscultation bilaterally Cardiovascular: Regular rate and rhythm. Normal S1 and S2 GI: Normal to inspection. Soft to palpation and nontender Skin: No rashes or lesions noted, but referral to dermatology for facial growth Neuro: Patient oriented x3 Extremities: Normal to inspection Results - Labs: Previous blood work showed normal blood count, no anemia, normal thyroid function Plan Patient was informed and verbally consented to the use of an ambient scribe for clinic note documentation during this visit. 1. Overweight The patient has been advised to maintain a healthy diet and exercise regimen to manage her weight. 2. Hirsutism A referral to dermatology has been made for further evaluation of her worsening facial hair growth. 3. Vitreomacular Adhesion The patient has been evaluated by ophthalmology, and no further intervention is required at this time. 4. Allergic Rhinitis The patient has been advised to take loratadine daily for symptom management and to monitor for improvement. 5. Tonsillar Stones The patient has been advised to maintain adequate hydration to help manage the condition. Discussion Notes During the visit, I discussed the patient's weight management, advising her to maintain a healthy diet and exercise regimen. I also addressed her concerns about hirsutism, providing a referral to dermatology for further evaluation. For her allergic rhinitis, I recommended loratadine for symptom relief and advised her to monitor for improvement. We discussed the presence of tonsillar stones and the importance of hydration to manage this condition. Patient Instructions - Maintain a healthy diet and regular exercise to manage weight. - Take loratadine daily for allergic rhinitis symptoms. - Stay hydrated to help manage tonsillar stones. - Follow up with dermatology for hirsutism evaluation. Orders: Referrals Dermatology Referral L68.0 - Hirsutism
--- OUTSIDE RECORDS SUMMARY | 2024-11-27 18:06 | XMS_ITS | Encounter Summary ---
Author Organization [facility] Address [address] [place] [id number] Phone Care Team Providers Care Specialties Operator Name Role Phone Kristel Krishna MD Primary Care Provider [phone] Encounter Details Date Type Department Care Team (Late st Contact Info) Description 11/05/2011 Documentation [facility] Family Medicine [address] [place], [place] [id number] Family Medicine, Physician [address] [place], [place] [id number] Social History Tobacco Use Types Packs/Day Years [...] on filedocumented in this encounter Care Teams Specialties Operator Relationship Specialty Start Date End Date Kristel Krishna MD [address] [place] [id number] PCP - General Pediatrics 03/10/19 07/21/23 documented as of this encounter
--- OUTSIDE RECORDS SUMMARY | 2024-11-27 18:06 | XMS_ITS | Encounter Summary ---
Author Organization [facility] Address [address] [place] [phone] Phone Care Team Providers Care Leader Tier Name Role Phone Kirstel Krishna MD Primary Care Provider [phone] Encounter Details Date Type Department Care Team (Late st Contact Info) Description 05/07/2016 Documentation [facility] [address] [place], [place] [phone] Family Medicine, Physician [address] [place] [place], [place] [id number] Social History Tobacco Use Types Packs/Day Years [...] on filedocumented in this encounter Care Teams Leader Tier Relationship Specialty Start Date End Date Kristel Krishna MD [address] [place] [id number] PCP - General Pediatrics 03/10/19 07/21/23 documented as of this encounter
--- OUTSIDE RECORDS SUMMARY | 2024-11-27 18:07 | XMS_ITS | Encounter Summary ---
Author Organization [facility] Address [address] [place] [id number] Phone Care Team Providers Care Copper Roller Handler Printing Name Role Phone Kristel Krishna MD Primary Care Provider [phone] Encounter Details Date Type Department Care Team (Late st Contact Info) Description 10/08/2016 Conversion Encounter [facility] [address] [place] [address] Social History Tobacco Use Types Packs/Day Years Used Date Smoking Tobacco: Never Comments:Never smoker Comments Unknown Sex and Gender Information Value Date Recorded Sex Assigned at Not on file Legal Sex Female 3:35 PM EDT Gender Identity Female 01/12/2023 7:50 AM EST Sexual Orientation Straight 12/19/2018 3: 14 PM EDT documented as of this encounter Plan of Treatment Not on file documented as of this encounter Visit Diagnoses Not on filedocumented in this encounter Care Teams Copper Roller Handler Printing Relationship Specialty Start Date End Date Kristel Krishna MD [address] [place] [address] PCP - General Pediatrics 03/10/19 07/21/23 documented as of this encounter
--- OUTSIDE RECORDS SUMMARY | 2024-11-27 18:07 | XMS_ITS | Clinical Summary ---
Author Organization [facility] Address [address] [place] [phone] Phone Care Team Providers Care Cardiac Monitor Name Role Phone Unavailable Primary Care Provider Unavailabl e Allergies No known active allergies Medications ibuprofen 600 MG tablet Take 600 mg by mouth every 6 (six) hours as needed. for pain 2 Active etonogestrel-ethi nyl estradiol 0.12-0.015 MG/24HR vaginal ringIndications:E ncounter for initial prescription of vaginal ring hormonal contraceptive Insert vaginally and leave in place for 3 consecutive weeks, then remove for 1 week. 3 each 3 Active Active Problems Problem Noted Date Diagnosed Date Right ovarian cyst 04/11/2021 Overview (05/15/2021): 04/07/2021: [facility] ED visit for pelvic pain. Work up negative except 1.5x1.5x1.4. Right ovarian cyst. IUD present. 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 05/15/2021 (age 20yr): Visit with BRAZING MACHINE FEEDER. IUD removed. Encounter for other contraceptive management Overview (07/06/2023): 04/10/2022 (age 21yr): Long discussion about BC options. No sig Hx clots, no migraine GAXIOLA. Tolerated ortho evra patch in the past. Will start nuva ring. Will still need regular care with BRA[employer]ING MACHINE FEEDER. - Last Specialist Visit: 07/06/2023 (age 23yr): [facility] History and Chronology of care: 07/02/2020: Started on otho evra patch by [facility] MACHINE FEEDER at [facility]. Stopped the patch b/c not SA. 05/15/2021 (age 20yr): IUD removed by B[employer]ING MACHINE FEEDER Assessment & Plan (04/10/2022 5:35 PM EST): 04/10/2022 (age 21yr): Long discussion about BC options. No sig Hx clots, no migraine GAXIOLA. Tolerated ortho evra patch in the past. Will start nuva ring. Will still need regular care with BRAZING MACHINE FEEDER. Change in weight 04/02/2020 Overview (04/10/2022): 04/10/2022 (age 21yr): Fluctuating weight. Labs normal 04/04/2020. Detailed History and Chronology of care: 04/02/2020 (age 19 yr 8 mo): unintentional weight loss, likely due to decreased caloric intake. However, mom thinks the 7 lb weight loss over the last year has actually been more recent. Labs for weight loss added to cholesterol test today. I encouraged Josseline to eat regular meals. Follow up weight was not arranged, but could be requested when labs are back. 04/04/2020 (age 19yr 8mo): labs normal. Recheck 1-2 months requested. Assessment & Plan (04/10/2022 5:34 PM EST): 04/10/2022 (age 21yr): Fluctuating weight. Labs normal 04/04/2020. Assessment & Plan (04/02/2020 11:32 AM EST): 04/02/2020 (age 19 yr 8 mo): unintentional weight loss, likely due to decreased caloric intake. However, mom thinks the 7 lb weight loss over the last year has actually been more recent. Labs for weight loss added to cholesterol test today. I encouraged Josseline to eat regular meals. Follow up weight was not arranged, but could be requested when labs are back. Depression 10/05/2019 Overview (04/10/2022): 04/10/2022 (age 21yr): Still having vague thoughts like 'why am I here or I wish I wasn't here'. Thinks about taking pills. Last occurred a few weeks ago. PHQ9 = 9. Would like to start therapy now. - [facility] - contracts for safety. Crisis number given. . Detailed History and Chronology of care: 10/01/2019: ED visit for scratching arms with razor blades after hearing her BF kissed anther girl. Thought safe for discharge, D/C'd with list of counselors and request to follow up with PCP. Has telehealth apt with [facility] 10/06/2019. 03/31/2019: ED visit for likely panic attack and reported HX anxiety/ depression. Discharge with outpatient resources. We reached out following this event, did not hear back. 04/02/2020 (age 19 yr 8 mo): .Josseline says her depression is 'in the middle'. She has therapist at [facility] ([place]), but doesn't like to talk to her. PHQ9 positive today. Denies self harm or SI. She contracts for safety. She is not wanted to consider medication right now. I encouraged her stay with her therapist. She is welcome to return to discuss medications at any time Assessment & Plan (08/11/2022 3:57 PM EDT): 08/11/22-Josseline with recent stressors of breakup and in the family. Managing pretty well with positive coping strategies. PLAN: Follow up with [facility]: Pt. Would prefer a referral to ongoing therapy. Referral made to [facility], walk-in options also discussed. Patient goal is to report improved symptoms of depression as evidenced by PH9. Behavioral Recommendations: Pt. To continue regular exercise. Try mood tracking. c. Use safety plan as needed and follow through with outpatient referral. Assessment & Plan (05/28/2022 5:28 PM EDT): 05/28/22-Josseline with ongoing symptoms of depression (low motivation, low energy, passive suicidal ideation, difficulty sleeping, negative thinking patterns) with some improvement from past symptoms. Pt. Would benefit from CBT strategies to recognize patterns and develop positive coping strategies. PLAN: Follow up with [facility] one month (difficult to take off from work) Patient goal is to report improved symptoms of depression as evidenced by PH9. Behavioral Recommendations: Pt. To make movement goal 3x/week (can be short duration, any activity) Try mood tracking. [facility] self-management guide given. c. Use safety plan as needed. Assessment & Plan (04/30/2022 11:55 AM EST): 04/28/22-Josseline with ongoing symptoms of depression (low motivation, low energy, passive suicidal ideation, difficulty sleeping, negative thinking patterns) with some improvement from past symptoms. Pt. Would benefit from CBT strategies to recognize patterns and develop positive coping strategies. PLAN: 1. Follow up with [facility] one month (difficult to take off from work) 2. Patient goal is to report improved symptoms of depression as evidenced by PH9. 3. Behavioral Recommendations: a. Pt. To make movement goal 3x/week (can be short duration, any activity) b. Try mood tracking. PP self-management guide given. c. Use safety plan as needed. Assessment & Plan (04/10/2022 5:34 PM EST): 04/10/2022 (age 21yr): Still having vague thoughts like 'why am I here or I wish I wasn't here'. Thinks about taking pills. Last occurred a few weeks ago. PHQ9 = 9. Would like to start therapy now. - [facility] - contracts for safety. Crisis number given. Assessment & Plan (04/02/2020 9:34 AM EST): 04/02/2020 (age 19 yr 8 mo): .Josseline says her depression is 'in the middle'. She has therapist at [facility] ([facility]), but doesn't like to talk to her. PHQ9 positive today. Denies self harm or SI. She contracts for safety. She is not wanted to consider medication right now. I encouraged her stay with her therapist. She is welcome to return to discuss medications at any time. Obesity 07/15/2011 Overview (04/02/2020): 04/02/2020 (age 19 yr 8 mo): BMI down to 85%ile from pver 95%ile 2 years ago. This weight loss has not been intentional but mom sees her eating less, but eating junk food. We discussed regular meals and exercise. See weight loss. Resolved Problems Problem Noted Date Diagnosed Date Resolved Date Other chest pain 04/02/2020 04/10/2022 Overview (04/04/2022): 04/04/2022 Chart Review: Chest pain visit 04/02/2020, EKG with LAD. Was schedule to see cardiology 05/30/2020. Detailed History and Chronology of care: 04/02/2020 (age 19 yr 8 mo): daily, lasts 5 minutes, midsternal, tender to touch, can feel 'heavy'. Started 1 year ago. + dizziness upon standing, but not with exercise, worse with deep breath. + intermittent tachycardia. Mon concerned because she tried doing and EKG with apple watch, thinks it is not normal. 04/05/2020 (age 19yr 8mo): referred to cardiology at mother's request, would like holter monitor. 04/17/2020 (age 19yr 9mo): EKG never made it to epic - 04/05/2020 EKG showed LAD. Hal appt 05/30/2020 Assessment & Plan (04/17/2020 8:24 PM EST): 04/17/2020 (age 19yr 9mo): EKG report still not sent over by [facility], I checked [facility] and the EKG was finalized as 'normal sinus rhythm with sinus arrhythmia, left axid deviation.' Josseline has a cardiology appointment on 05/30/2020. I called mom to discuss this result. Chronic right-sided low back pain without sciatica 04/26/2019 04/10/2022 Overview (04/26/2019): Started PT 04/04/2019 Immunizations Immunization Administration Dates Next Due DTaP 5 08/09/2006, 5,02/12/2003,11/16,2002 H1N1 01/03/2009 HPV Vaccine 9 Valent 02/04/2015 HPV, Quadrivalent 07/25/2014,05/31/2013 Hep A, ped/adol 02/04/2015,07/25/2014 Hep B, ped/adol 04/25/2003,02/12/2003,2002 Hib (HbOC) 12/25/2003 Hib (PRP-T) 02/12/2003,2002,2002 IPV 08/09/2006, 4,2002,09/05 Influenza Split 03/17/2010 Influenza, injectable, quadr ivalent, preservative free 04/02/2020,12/01/2018,12/15/2017,11/03,05/31/2013 Influenza, injectable, trivalent 11/21/2008,05/2007 Influenza, intranasal, quadrivalent 02/04/2015,1 MMR 07/24/2003 MMRV 08/09/2006 Meningococcal Conj (Menactra) MCV4P 12/19/2018,0 07/25/2014 Pneumococcal Conjugate 12/25/2003,2002,2002,09/05 Tdap 07/25/2014 Varicella 07/24/2003 Family History Relation Name Status Comments Brother 1 Alexis Alive Brother: Asthma , Alive and well, Alive and well Brother 2 Attila Alive Brother: Asthma , Alive and well, Alive and well Father Alive Father: Alive a nd well Mother Nahed Alive Mother: Migrain es Other Family history of Diabetes mellitus, Family history of Migraines Social History Tobacco Use Types Packs/Day Years Used Date Smoking Tobacco: Never Smokeless Tobacco: Never Comments:Never smoker Alcohol Use Standard Drinks/Week Comments No 0 (1 standard drink = 0.6 oz pur e alcohol) Hunger/Food Answer Date Recorded In the last 12 months, did y ou or your family ever eat less than you felt you should because there wasn't enough money for food? No 04/10/2022 Stable Housing Answer Date Recorded Are you worried that in the next 2 months you may not have stable housing? No 04/10/2022 Transportation Concerns Answer Date Rec orded In the last 12 months, have you or your family ever had to go without healthcare because you didn't have a way to get there? No 04/10/2022 Hazards in Home Answer Date Recorded Think about the place you li ve. Do you have problems with any of the following? Pests (mice or roaches), mold, no/not working smoke detectors, water leaks, no window guards. No 2022 Financing Utilities Answer Date Recorde d In the last 12 months, has t he electric, gas, oil, or water company threatened to shut off your services in your home? No 04/10/2022 Safety at Home Answer Date Recorded Are you or your family worried about feeling saf e in your home? No 04/10/2022 Outside Support Answer Date Recorded Do you feel that you need mo re support from other people or programs to help you care for yourself or your family? No 04/10/2022 Understanding Health Concerns Answer Da te Recorded Do you need help understandi ng your or your child's healthcare needs (diagnosis, medications, plan, etc.)? No 04/10/2022 Financing Health Concerns Answer Date R ecorded In the last 12 months, was t here a time when your child needed to see a doctor or get medications or supplies but could not because of cost? No 04/10/2022 Missing School or Work Answer Date Vikas rded Did you or your child miss s chool or work because of a health problem that could have been avoided? No 04/10/2022 Comments No Sex and Gender Information Value Date Recorded Sex Assigned at Not on file Legal Sex Female 3:35 PM EDT Gender Identity Female 01/12/2023 7:50 AM EST Sexual Orientation Straight 12/19/2018 3: 14 PM EDT Last Filed Vital Signs Vital Sign Reading Time Taken Comments Blood Pressure 96/64 08/28/2022 8:39 AM EDT Pulse 78 08/28/2022 8:39 AM EDT Temperature 37.1 C (98.8 F) 08/03/2022 1:52 PM EDT Respiratory Rate - - Oxygen Saturation - - Inhaled Oxygen Concentration - - Weight 56.9 kg (125 lb 6.4 oz) 08/28/2022 8:39 A M EDT Height 147.3 cm (4' 10 ) 04/10/2022 3:38 PM EST Body Mass Index 26.21 04/10/2022 3:38 PM EST Plan of Treatment Health Maintenance Due Date Last Done Comments Men B Vaccine (1 of 2 - Standard) 2018 DTaP,Tdap,and Td Vaccines (7 - Td or Tdap) 07/25/2024 07/25/2014, 08/09/2006, 07/09/2006, Additional history exists Influenza Vaccines (#1) 2024 04/02/19, 12/01/2018, 12/15/2017, Additional history exists COVID-19 Vaccine (3 - 2024-2 6 season) 2024 09/07/2020, 08/14/2020 Hepatitis B Vaccines Completed 04/25/2003, 02/12/2003, 2002, Additional history exists HIB Vaccines Completed 12/25/2003, 09/22, 02/12/2003, Additional history exists Pneumococcal Vaccine Completed 01/08/2004, 12/25/2003, 02/12/2003, Additional history exists IPV Vaccines Completed 08/09/2006, 06/22, 10/09/2003, Additional history exists MMR Vaccines Completed 08/09/2006, 06/22, 10/09/2003, Additional history exists Varicella Vaccines Completed 06/27/2007, 0 08/09/2006, 10/09/2003, Additional history exists HPV Vaccines Completed 02/04/2015, 07/25, 07/25/2014, Additional history exists Hepatitis A Vaccines Completed 02/04/2015, 07/25/2014, 10/28/2010, Additional history exists Meningococcal Vaccine Completed 12/19/2018 , 08/21/2014, 07/25/2014 Procedures * Due to [place] law, this organization might not be sharing sensitive test results. Procedure Name Priority Date/Time Associated Diagnosis Comments SURESWAB (ADV) VAGINITIS PLUS, TMA Routine 08/28/2022 9:06 AM EDT Vaginal discharge from Last 3 Months or Most Recently Relevant to Health Maintenance Results * Due to [place] law, this organization might not be sharing sensitive test results. * SureSwab Advanced (TMA)- BV, CT/NG, Nevin, Trich (08/28/2022 9:06 AM EDT) BACTERIAL VAGINOSIS TEST NEGATIVE (NEG) [facility] Comment: No bacterial vaginosis targets by PCR detected in this patient's sample. Note: This assay uses real time marine mechanic-mediated amplification (TMA) for detection and quantification of ribosomal RNA from bacteria associated with bacterial vaginosis (BV), including Lactobacillus (L. gasseri, L. crispatus, and L. jensenii), Gardnerella vaginalis, and Atopobium vaginae. Nevin Species NEGATIVE (NEG) [facility] Comment: No nevin species group (C. albicans, C. tropicalis, C. parapsilosis, C. dubliniensis) targets by PCR detected in this patient's sample. Nevin Glabrata, ALEX NEGATIVE (NEG) [facility] Comment:No Nevin glabrata targets by PCR detected in this patient's sample. SureSwab, T.vaginalis RNA NEGATIVE (NEG) [facility] Comment: No Trichomonas vaginalis targets by PCR detected in this patient's sample. Note: This assay uses real time marine mechanic-mediated amplification (TMA) for detection and quantification of ribosomal RNA from organisms associated with Nevin species group (C. albicans, C. tropicalis, C. parapsilosis, C. dubliniensis), Nevin glabrata, and Trichomonas vaginalis. Chlamydia Trachomatis, Amplified NEGATIVE (NEG) [facility] Comment: No Chlamydia Trachomatis RNA detected in this patient's sample (REFERENCE RANGE/NORMAL VALUE: NOT DETECTED) Note: This test uses marine mechanic- mediated amplification method to detect rRNA from C. Trachomatis N.GONORRHOEAE AMP PROBE NEGATIVE (NEG) [facility] Comment: No Neisseria Gonorrhoeae RNA detected in this patient's sample (REFERENCE RANGE/NORMAL VALUE: NOT DETECTED) NOTE: This test uses marine mechanic-mediated amplification method to detect rRNA from N.Gonorrhoeae. A negative result does not preclude infection. In the case of a negative urine result, testing of an endocervical(female) or urethral (male) specimen is recommended if there is high clinical suspicion of infection. Due to very high sensitivity of Nucleic Acid Amplification Test, false positive results may occur. Therefore, specimen handling is extremely important. In patients in whom the disease is unlikely, additional sample for testing should be considered after an initial positive result. The performance characteristics of this test have not been evaluated in children. The Aptima Combo2 assay is not intended for the evaluation of suspected sexual abuse or for other medico-legal indications. The ordering provider should assess if the patient had consensual sex without risk of sexual abuse. Consult the [facility] if needed. Contact phone number . Therapeutic failure or success cannot be determined with the Aptima Combo2 assay since nucleic acid may persist following appropriate antimicrobial therapy. The Centers for Disease Control and Prevention (CDC) recommends confirmatory retesting using culture or a different nucleic acid amplification test when positive results occur, if indicated. Testing performed or reported by [facility], a Service of [facility], [address] [place] [address] Lamont Macias MD, Administrative Services Director [facility]# [id number] Swab (Vagina) 08/28/2022 9:0 6 AM EDT 08/28/2022 5:47 PM EDT us Ny Lyles MD LAB MICROBIOLOGY - GENERAL O RDERABLES Final Result [facility] from Last 3 Months or Most Recently Relevant to Health Maintenance
--- OUTSIDE RECORDS SUMMARY | 2024-11-27 18:07 | XMS_ITS | Encounter Summary ---
Author Organization [facility] Address [address] [place] [phone] Phone Care Team Providers Care Ada Accommodation Consultant Name Role Phone Kristel Krishna MD Primary Care Provider [phone] Encounter Details Date Type Department Care Team (Late st Contact Info) Description 02/13/2013 Documentation [facility] Family Medicine [address] [place], [place] [id number] Family Medicine, Physician [address], [place] [address] Social History Tobacco Use Types Packs/Day Years [...] on filedocumented in this encounter Care Teams Ada Accommodation Consultant Relationship Specialty Start Date End Date Kristel Krishna MD [address] [place] [phone] PCP - General Pediatrics 03/10/19 07/21/23 documented as of this encounter
== END 2024-11-27 16:20 | disposition home or self-care (01) ==
LOC: HO.HMCH 15:48
PROVIDERS: PCP Internal Medicine; Visit Provider Internal Medicine
DX: Z00.00 Encounter for general adult medical examination without abnormal findings (principal); E66.3 Overweight; L68.0 Hirsutism

== ENCOUNTER → 2024-11-27 15:47 | Outpatient (BNVA) | payer OTHER, SELFPAY | PROVIDERS: PCP Internal Medicine; Visit Provider Internal Medicine | DX: Z00.00 Encounter for general adult medical examination without abnormal findings (principal); E66.3 Overweight; L68.0 Hirsutism; J30.9 Allergic rhinitis, unspecified; J35.8 Other chronic diseases of tonsils and adenoids; Z68.27 Body mass index [BMI] 27.0-27.9, adult | CPT/HCPCS: 99395 ==